=== PATIENT | female | born 1985 | race Caucasian/White ===

== ENCOUNTER 2017-07-27 19:21 | Emergency (ER) | payer MEDICAID | END 2017-07-27 20:34 | disposition home or self-care (01) | LOC: D.ER 19:21 | DX: S00.83XA Contusion of other part of head, initial encounter (principal); W01.0XXA Fall on same level from slipping, tripping and stumbling without subsequent striking against object, initial encounter; Y93.89 Activity, other specified; Y92.029 Unspecified place in mobile home as the place of occurrence of the external cause; S80.02XA Contusion of left knee, initial encounter; E11.9 Type 2 diabetes mellitus without complications ==